=== PATIENT | female | born 1980 | race Caucasian/White ===

== ENCOUNTER 2019-08-03 08:13 | Emergency (ER) | payer BC, OTHER ==
[2019-08-03 08:47] LABS: Bacteria/HPF 1+ HPF (None Seen); Bilirubin Negative (Negative); Blood, Urine 3+ (Negative); Clarity Clear (Clear); Glucose, Urine (Dipstick) Normal (Negative); Leukocyte 25 Leu/uL (Negative); Nitrite Negative (Negative); Protein, Urine (Dipstick) Negative (Neg-Trace); RBC/HPF Greater than 50 HPF (0-3); Squamous Epithelial 0-3 HPF (0-3); Urobilinogen Normal mg/dL (Less than 2); WBC/HPF 0-3 HPF (0-3)
[2019-08-03] MEDS ORDERED: Ondansetron PF 4 MG/2 ML Vial ONE (08:57)
[2019-08-03 09:02] LABS: #Basophils 0.1 thou/uL (0.0-0.2); #Eosinphils 0.3 thou/uL (0.0-0.7); #Lymphocytes 1.5 thou/uL (1.20-3.40); #Monocytes 0.4 thou/uL (0.11-0.59); #Neutrophils 2.6 thou/uL (1.40-6.50); %Basophils 1.8 % (0.0-1.0); %Eosinophils 6.1 % (0.0-10.0); %Lymphocytes 30.1 % (21.0-51.0); %Monocytes 8.4 % (0.0-10.0); %Neutrophils 53.7 % (42.0-75.0); Hemoglobin 12.2 g/dL (12.0-16.0); Mean Corpuscular HGB CONC 33.6 g/dL (32.0-36.0); Mean Corpuscular Hemoglobin 29.7 pg (27.0-31.0); Mean Corpuscular Volume 88.6 fL (78.0-98.0); Mean Platelet Volume 7.9 fL (7.4-10.4); Platelet Count 244 thou/uL (130-400); RBC Distribution Width 11.4 % (11.5-14.5); Red Blood Cell (RBC) Count 4.12 mill/uL (4.20-5.40); White Blood Cell (WBC) Count 4.9 thou/uL (4.8-10.8)
[2019-08-03 09:22] LABS: ALT (SGPT) 9 U/L (8-55); AST (SGOT) 14 U/L (5-34); Albumin 4.3 g/dL (3.5-5.0); Alkaline Phosphatase 66 U/L (40-150); Anion Gap 12 mmol/L (10-20); BUN (Urea Nitrogen) 12 mg/dL (7.0-18.7); Bilirubin, Total 0.3 mg/dL (0.2-1.2); Calc. Creatinine Clearance 0 mL/min (70-130); Calcium 9.5 mg/dL (7.8-10.44); Carbon Dioxide 24 mmol/L (22-29); Chloride 107 mmol/L (98-107); Estimated GFR-MDRD 80; Glucose 89 mg/dL (70-105); Potassium 3.7 mmol/L (3.5-5.1); Protein, Total 7.3 g/dL (6.0-8.3); Sodium 139 mmol/L (136-145)
[2019-08-03 09:23] LABS: Pregnancy Test - Urine (BHCG) Negative (Negative); Pregu Control Background? CLEAR/WHITE (CLR/WHITE); Pregu Control Bar Appear? YES (CONTROL BAR); Specific Gravity 1.011 (1.002-1.036)
--- NOTE | 2019-08-03 09:48 | CT ---
CT ABDOMEN AND PELVIS WITH IV CONTRAST: HISTORY: 39-year-old female with dysuria. Diagnosed with bladder infection last week and kidney infec tions over the weekend. FINDINGS: The lung bases are clear. No calcified gallstones are seen. The liver spleen pancreas adrenal glands and left kidney are normal. There is scarring in the right kidney. No perinephric inflammatory changes are seen. No hydroureteronephrosis is noted in either side. No free air or lymphadenopathy se en. There is a small amount of free fluid in the pelvis. A normal-appearing appendix is seen. No abnormally loculated fluid collection is seen to suggest abscess formation. Uterus and ovaries are present. There is a fat and calcium containing 8 cm pelvic mass likely arising from the left ovary and consistent with a dermoid/teratoma. There are postop changes of tubal ligation. IMPRESSION: 1. No evidence of abscess. 2. Free fluid in the pelvis. 3. 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 Gynecologic consultation is recommen ded.
[2019-08-03] MEDS ORDERED: Ketorolac Tromethamine 30 MG/ML VIAL ONE (10:54)
[2019-08-03] MEDS ORDERED: Acetaminophen 500 MG TAB ONE (10:54)
--- NOTE | 2019-08-03 12:37 | ULT ---
TRANSABDOMINAL PELVIC ULTRASOUND WITH DOPPLER EVALUATION: COMPARISON: CT of the abdomen and pelvis dated 08/03/2019. FINDINGS: As seen on the comparison CT performed earlier at 9:31 a.m. is a complex mixed-echogenicity mass rosalia ing from the left ovary. The left ovary measures approximately 3.1 x 3 cm and demonstrates normal va scular flow. The complex mass measures 8 x 5.8 x 5.4 cm suspicious for an ovarian dermoid tumor. The right ovary measures 2.7 x 1.3 x 1.4 cm and demonstrates normal flow. Endometrial stripe measures 4 mm. The uterus measures 8.5 x 4.9 x 4.8 cm. There is an echogenic line ar structure seen within the upper uterine cornea likely related to the patient's known Essure device . No free fluid is evident. IMPRESSION: 1. Large dermoid mass arising from the left ovary. There is normal flow to the left ovary. 2. No evidence of free fluid. 3. Essure device is incidentally noted within the uterus. POS: [facility]
[2019-08-03] MEDS ORDERED: ISOVUE-370 76%-LOCM 1 ML ONE (17:13)
== END 2019-08-03 13:00 | disposition home or self-care (01) ==
LOC: ERS 08:13
DX: N39.0 Urinary tract infection, site not specified (principal); N83.8 Other noninflammatory disorders of ovary, fallopian tube and broad ligament
CPT/HCPCS: 74177; 76856; 80053; 81003; 81015; 81025; 85025; 87086; 93976; 96361; 96374; 96375; J1885; J2405; Q9966

== ENCOUNTER 2019-09-04 14:58 | Outpatient (CLI) | payer BC ==
[2019-09-04 16:33] LABS: Hemoglobin 11.5 g/dL (12.0-16.0); Mean Corpuscular HGB CONC 33.6 g/dL (32.0-36.0); Mean Corpuscular Hemoglobin 30.1 pg (27.0-31.0); Mean Corpuscular Volume 89.5 fL (78.0-98.0); Platelet Count 214 thou/uL (130-400); RBC Distribution Width 11.4 % (11.5-14.5); Red Blood Cell (RBC) Count 3.84 mill/uL (4.20-5.40); White Blood Cell (WBC) Count 5.5 thou/uL (4.8-10.8)
[2019-09-04 18:03] LABS: BHCG - Serum Negative (NEGATIVE); Pregs Control Background? CLEAR/WHITE (CLR/WHITE); Pregs Control Bar Appear? YES (CONTROL BAR)
== END 2019-09-04 14:59 | disposition home or self-care (01) ==
LOC: LABBT 14:58
PROVIDERS: ATTEND Obstetrics & Gynecology
DX: Z01.812 Encounter for preprocedural laboratory examination (principal); N83.202 Unspecified ovarian cyst, left side
CPT/HCPCS: 84703; 85027; 86850; 86900; 86901

== ENCOUNTER 2019-09-05 05:37 | Day surgery (SDC) | payer BC ==
[2019-09-04 15:24] VITALS: BMI 31.7
[2019-09-05] MEDS ORDERED: CeleCOXIB 100 MG CAP ONE (06:11)
[2019-09-05] MEDS ORDERED: Famotidine/PF 20 mg/2ml Vial ONE (06:11)
[2019-09-05] MEDS ORDERED: Gabapentin 300 MG CAP ONE (06:21)
[2019-09-05] MEDS ORDERED: Fentanyl 100 MCG/2 ML VIAL ONE (06:32)
[2019-09-05] MEDS ORDERED: Bupivacaine HCl 0.5%/Epinephrine 1:200,000/PF 30 ml Vial ONE (06:43)
[2019-09-05] MEDS ORDERED: Midazolam HCl 2 mg/2 ml Vial ONE (07:29)
[2019-09-05] MEDS ORDERED: SUGAMMADEX SODIUM 200 MG/2 ML VIAL ONE (07:34)
[2019-09-05] MEDS ORDERED: Bacitracin Zinc Ointment 30 gm TUBE ONE (08:57)
[2019-09-05] MEDS ORDERED: HYDROcodone/Acetaminophen 5/325 mg Tablet ONE (10:07)
--- NOTE | 2019-09-05 10:55 | OP ---
DATE OF PROCEDURE: 09/05/2019 PREOPERATIVE DIAGNOSIS: Large left ovarian cyst with dermoid suspected. POSTOPERATIVE DIAGNOSIS: Large left ovarian cyst with dermoid suspected. PROCEDURE PERFORMED: Laparoscopic left salpingo-oophorectomy. SORTING AND FOLDING SUPERVISOR: Heide Amin PA-C COMPLICATIONS: None. ESTIMATED BLOOD LOSS: Less than 10 mL. ANESTHESIA: GETA. ANESTHESIOLOGIST: Dr. Nicholas. OPERATIVE FINDINGS: Normal-appearing right tube and ovary. Normal-appearing uterus. Normal-appearing left tube. Large left ovarian cyst, consistent with a dermoid. PROCEDURE IN DETAIL: The patient was taken back to the OR with IV fluids running. Once she was in the OR, she was placed in dorsal supine position and anesthesia was obtained. Once the patient was asleep, she was placed in low dorsal lithotomy position and the abdomen and vagina were prepped and draped in normal fashion for gynecologic laparoscopy. A Chavis catheter was placed into the bladder. The surgeons were gowned and gloved, and attention was turned to the laparoscopic portion of the case. Prior to the laparoscopic portion of the case, a Hulka clamp was placed under direct visualization into the cervix and uterus for uterine manipulation if needed during the case. The surgeon's gloves were changed and attention was turned to the laparoscopic portion. Beginning at the supraumbilical fold, local anesthesia was injected underneath the skin. A 12-mm skin incision was made with a scalpel. A Veress needle was placed through this skin incision and the abdomen was insufflated without difficulty. Once the abdomen was insufflated, the Veress needle was removed and a 12-mm trocar was placed through this incision. The laparoscope was then placed through this trocar with the above findings noted. The patient was placed in Trendelenburg position. The right and left lower quadrant 8 mm ports were placed under direct visualization without complication. The anatomy was inspected and photos were taken with a normal-appearing right tube and ovary, normal-appearing left ovary, normal-appearing uterus, and an enlarged left ovary, approximately 7 cm in size. The left ovary was grasped and elevated away from the pelvic sidewall. The ureter was identified and noted to be coursing well away from the IP ligament. The IP ligament was identified. It was cauterized and transected with the LigaSure device. The utero-ovarian ligament was then identified, cauterized, and transected using the LigaSure device. The left fallopian tube was dissected, cauterized, and transected away from the pelvic anatomy with the LigaSure device. Once the ovary specimen was completely freed from the pelvis, it was placed into the cul-de-sac. The areas of dissection were carefully inspected and any small areas of bleeding were controlled with the LigaSure. The left pelvic sidewall and uterus were irrigated and suctioned dry. No areas of bleeding were noted. EndoCatch bag was introduced into the abdomen. The ovary specimen was placed in the EndoCatch bag and brought through the umbilical incision. The ovarian specimen was decompressed with the suction and brought through the EndoCatch bag through the umbilical incision. Once the specimen was removed, it was handed off for pathologic review. The gas was returned to the abdomen and the laparoscope was replaced, where the surgical dissection was inspected again with no bleeding noted. All instruments were removed. The umbilical incision was closed at the fascial layer with Vicryl suture. All 3 skin incisions were closed with Monocryl suture and dressed with Dermabond dressing. The Hulka clamp was removed and the cervix was inspected with no bleeding noted. The patient was cleaned and dried, taken to the recovery room after she was extubated. The counts were correct. There were no complications. Job ID: [id number]
[2019-09-05] MEDS ORDERED: Lidocaine 1% PF 5 ML VIAL ONE (11:41)
[2019-09-05] MEDS ORDERED: Dexamethasone 20 MG/5 ML VIAL ONE (11:41)
[2019-09-05] MEDS ORDERED: ePHEDrine 50 MG/ML VIAL ONE (11:41)
[2019-09-05] MEDS ORDERED: Ketorolac Tromethamine 30 MG/ML VIAL ONE (11:41)
[2019-09-05] MEDS ORDERED: PROPOFOL 200 MG/20 ML VIAL ONE (11:41)
[2019-09-05] MEDS ORDERED: Rocuronium Bromide 10 MG/ML (10ML VIAL) ONE (11:41)
[2019-09-05] MEDS ORDERED: Ondansetron PF 4 MG/2 ML Vial ONE (11:41)
== END 2019-09-05 12:10 | disposition home or self-care (01) ==
LOC: SDC 05:37
PROVIDERS: ATTEND Obstetrics & Gynecology
PROC: 0UB14ZZ Excision of Left Ovary, Percutaneous Endoscopic Approach (ICD-10-PCS; principal; 2019-09-05)
PROC: 0UB64ZZ Excision of Left Fallopian Tube, Percutaneous Endoscopic Approach (ICD-10-PCS; principal; 2019-09-05)
DX: D27.1 Benign neoplasm of left ovary (principal); G89.18 Other acute postprocedural pain; Z88.0 Allergy status to penicillin
CPT/HCPCS: 88307; J0131; J0670; J0690; J2250; J3010; S0028

== ENCOUNTER 2021-04-15 10:00 | Outpatient (CLI) | payer BC | END 2021-04-15 10:01 | disposition home or self-care (01) | LOC: BICULT 10:00 | PROVIDERS: ATTEND Specialist | DX: R10.2 Pelvic and perineal pain (principal); R10.9 Unspecified abdominal pain; R93.89 Abnormal findings on diagnostic imaging of other specified body structures; Z90.721 Acquired absence of ovaries, unilateral | CPT/HCPCS: 76856; 93975 ==

== ENCOUNTER 2024-04-04 08:01 | Outpatient (CLI) | payer BC | END 2024-04-04 08:02 | disposition home or self-care (01) | LOC: BICMAMMO 08:01 | PROVIDERS: ATTEND Family Medicine | DX: Z12.31 Encounter for screening mammogram for malignant neoplasm of breast (principal); N64.89 Other specified disorders of breast | CPT/HCPCS: 77063; 77067 ==

== ENCOUNTER 2025-06-26 09:18 | Outpatient (CLI) | payer BC | END 2025-06-26 09:19 | disposition home or self-care (01) | LOC: BICMAMMO 09:18 | PROVIDERS: ATTEND Family Medicine | DX: Z12.31 Encounter for screening mammogram for malignant neoplasm of breast (principal) | CPT/HCPCS: 77063; 77067 ==